=== PATIENT | female | born 2000 | race Caucasian/White ===

== ENCOUNTER 2023-09-23 17:05 | Inpatient (IN) | payer OTHER ==
[2023-09-23] MEDS ORDERED: Methylergonovine 0.2 MG/1 ML Amp IM PRN (17:56)
[2023-09-23] MEDS ORDERED: fentaNYL 100 MCG/2 ML SDV IVPUSH PRN (17:56)
[2023-09-23] MEDS ORDERED: Misoprostol 400 MCG (4 X 100 MCG TAB) RECTAL PRN (17:56)
[2023-09-23] MEDS ORDERED: Acetaminophen 325 MG Tab PO PRN (17:56)
[2023-09-23] MEDS ORDERED: Tranexamic Acid 1,000 MG in Sodium Chloride 0.9% 100 ML IV PRN (17:56)
[2023-09-23] MEDS ORDERED: Carboprost Tromethamine 250 MCG/1 ML Amp IM PRN (17:56)
[2023-09-23] MEDS ORDERED: Sodium Chloride 0.9% 10 ML Syringe FLUSH PRN (17:56)
[2023-09-23 18:08] LABS: HEMATOCRIT 36.8 % (37.0-47.0); HEMOGLOBIN 12.9 g/dL (12.0-16.0); MEAN CORPUSCULAR HEMOGLOBIN 31.4 pg (27.0-34.0); MEAN CORPUSCULAR HGB CONC 35.1 g/dL (33.0-35.0); MEAN CORPUSCULAR VOLUME 89.5 fL (80-100); RED BLOOD CELL COUNT 4.11 10^6/uL (4.2-5.4); WHITE BLOOD CELL COUNT,WBC 16.9 10^3/uL (5.0-10.0)
[2023-09-23] MEDS: Lactated Ringers 1,000 ML IV ONE (18:40)
[2023-09-23] MEDS ORDERED: fentaNYL 100 MCG/2 ML SDV ONE (19:00)
[2023-09-23] MEDS ORDERED: Bupivacaine 0.25% 10 ML SDV ONE (19:00)
[2023-09-23] MEDS: Lactated Ringers 1,000 ML IV SCH (19:09)
[2023-09-23] MEDS ORDERED: Phenylephrine HCl In 0.9% NaCl 1 MG/10 ML Syringe IVPUSH PRN (19:32)
[2023-09-23] MEDS ORDERED: ePHEDrine 50 MG/ML SDV IVPUSH PRN (19:32)
[2023-09-23] MEDS ORDERED: Ropivacaine 200 MG in Premix Bag 1 BAG EPIDUR SCH (19:45)
[2023-09-23] MEDS: Ondansetron 4 MG/2 ML SDV IVPUSH PRN (20:04)
[2023-09-24] MEDS: Oxytocin/Normal Saline 30 UNIT/500 ML BAG IV SCH (03:01)
[2023-09-24] MEDS ORDERED: Witch Hazel Medicated Pads 100/Jar TOP PRN (03:33)
[2023-09-24] MEDS ORDERED: Simethicone 80 MG Tab.Chew PO PRN (03:33)
[2023-09-24] MEDS ORDERED: Oxytocin 10 Units/1 ML SDV IM PRN (03:33)
[2023-09-24] MEDS ORDERED: Benzocaine/Menthol 20%-0.5% Spray 78 GM Cannister TOP PRN (03:33)
[2023-09-24] MEDS ORDERED: Ketorolac 30 MG/ML SDV ONE (07:14)
[2023-09-24] MEDS ORDERED: Oxytocin 10 Units/1 ML SDV ONE (07:14)
[2023-09-24] MEDS ORDERED: Dexamethasone 4 MG/ML SDV ONE (07:14)
[2023-09-24] MEDS ORDERED: Ondansetron 4 MG/2 ML SDV ONE (07:14)
[2023-09-24] MEDS ORDERED: ceFAZolin 2 GM Vial ONE (07:15)
[2023-09-24] MEDS ORDERED: Succinylcholine 200 MG/10 ML MDV ONE (07:15)
[2023-09-24] MEDS ORDERED: Lidocaine 2% with EPINEPHrine 1:200,000 20 ML SDV ONE (07:23)
[2023-09-24] MEDS: Lidocaine 1% 30 ML SDV INJECT ONE (08:25)
[2023-09-24] MEDS: Prenatal Multivitamin with Calcium/Folic Acid/Iron Tab PO SCH (10:48)
[2023-09-24] MEDS: Ibuprofen 800 MG Tab PO SCH (10:49)
[2023-09-25] MEDS: Docusate Sodium 100 MG Cap PO PRN (22:01)
[2023-09-26] MEDS: Acetaminophen 325 MG Tab PO PRN (09:22)
[2023-09-26] MEDS: Measles, Mumps & Rubella Vaccine 0.5 ML SDV SUBCUT ONE (16:25)
[2023-09-26] MEDS ORDERED: fentaNYL 100 MCG/2 ML SDV EPIDUR ONE ×2 (17:34)
[2023-09-26] MEDS ORDERED: Bupivacaine 0.25% 10 ML SDV EPIDUR ONE (17:34)
[2023-09-26] MEDS ORDERED: Ropivacaine 100 ML EPIDUR ONE (17:34)
== END 2023-09-26 17:35 | disposition home or self-care (01) | DRG 807 ==
LOC: DL.OBCHECK 17:05 → DL.OB 17:42 → UNDOADMOB 17:42 → DL.OB 17:56 → OBSVTOIN 09-24 02:54
PROVIDERS: ADMIT Family Medicine; ATTEND Family Medicine
PROC: 10E0XZZ Delivery of Products of Conception, External Approach (ICD-10-PCS; principal; 2023-09-24)
PROC: 0KQM0ZZ Repair Perineum Muscle, Open Approach (ICD-10-PCS; 2023-09-24)
PROC: 3E0R3BZ Introduction of Anesthetic Agent into Spinal Canal, Percutaneous Approach (ICD-10-PCS; 2023-09-24)
PROC: 00HU33Z Insertion of Infusion Device into Spinal Canal, Percutaneous Approach (ICD-10-PCS; 2023-09-24)
DX: O26.893 Other specified pregnancy related conditions, third trimester (principal); Z37.0 Single live birth; Z3A.38 38 weeks gestation of pregnancy; Z67.91 Unspecified blood type, Rh negative; O99.284 Endocrine, nutritional and metabolic diseases complicating childbirth; E03.9 Hypothyroidism, unspecified; Z79.890 Hormone replacement therapy; O70.1 Second degree perineal laceration during delivery
CPT/HCPCS: 01967; 36415; 51702; 59409; 85027; 90471; 90707; A9270-GY; J0330; J0665; J2405; J2590; J2795; J3010; J7120